=== PATIENT | female | born 1980 | race African-American/Black ===

== ENCOUNTER 2016-11-30 11:00 | Inpatient (IN) | payer OTHER ==
--- NOTE | ~2016-11-30 | PN ---
Unit #: [id number] #: [id number] Patient: ALONZO BHAKTA [id number] [facility] [address] [place] [address] [id number] I MR#: [id number] NAME: ALONZO BHAKTA ROOM: [facility] Age: 36 Sex: F Admission Date: 11/30/2016 : 1980 Attending Physician: Taiwo Henning M.D. Admitting Physician: Michael Rodriguez PROGRESS NOTES DATE 12/03/2016 SUBJECTIVE UPDATE This is a 36-year-old female here with ongoing issues of severe depression with suicidal ideation. Patient reports sleeping better last night with the addition of the trazodone. She also reports overall her mood seems to be improving and the SI is improving as well. Still some residual vague symptoms but no desire or plan today. Patient does report feeling somewhat fatigued this morning with the trazodone but overall says she feels like her mood is improving and her sleep quality is improving. No additional complaints. MENTAL STATUS EXAMINATION General appearance is a moderately groomed female improved eye contact. Speech was clear and coherent, normal prosody. Mood was depressed but improving with a congruent affect. Thought process and content are grossly organized, linear, no overt evidence of psychosis. SI resolving but still present. No active plan or intent or desire. Memory is fair. Alert and oriented times four. Cognitive functioning is at baseline. Associations are normal. Insight and judgement is improving. RECOMMENDATIONS Continue patient's admission for safety and stabilization. Overall, the patient has been showing good progress with her overall care. Depression and SI are improving but not yet resolved. Will continue patient care with likely disposition soon should progress be maintained. Sleep quality also is improving with treatment. Dictated by... Michael Rodriguez/michelle TD: 12/03/2016 17:01 JOB #: [id number] Unit #: [id number] #: [id number] Patient: ALONZO BHAKTA PROGRESS NOTES Page 1 of 1 X Taiwo Henning MD X PROGRESS NOTE
--- NOTE | ~2016-11-30 | PN ---
Unit #: [id number] #: [id number] Patient: ALONZO BHAKTA [id number] [facility] [address] [place] [address] [id number] I MR#: [id number] NAME: ALONZO BHAKTA ROOM: [facility] Age: 36 Sex: F Admission Date: 11/30/2016 : 1980 Attending Physician: Taiwo Henning M.D. Admitting Physician: Michael Rodriguez PROGRESS NOTES DATE 12/02/2016 SUBJECTIVE UPDATE This is a 36-year-old female here with ongoing issues of significant depression. Patient reports mood is still very poor, depressed with vague suicidal ideations. Reports poor night of sleep because of noise on the unit. The patient seems to be tolerating the Zoloft but has not seen any strong benefit as of yet. The patient is still fairly isolative to self but denies any agitation or other symptoms of side effects at this point. MENTAL STATUS EXAMINATION General appearance is a moderately groomed female fairly pleasant and cooperative responsiveness with moderate eye contact. Speech was clear and coherent normal prosody. Mood was depressed with a blunted affect. Thought process and content were grossly organized and linear. No overt evidence of psychosis positive for SI but no clear plan or intent. Patient's memory was grossly intact. Associations were normal. Cognitive functioning was at baseline. Alert and oriented times four. Insight and judgement is poor. RECOMMENDATIONS We will continue patient's admission for safety and stabilization for ongoing issues with depression and suicidal ideation. The patient seems to be tolerating medications in the acute phase but has not seen any strong benefit or change yet in mood. We will need further stabilization for safety purposes. Dictated by... Michael Rodriguez/veronique TD: 12/03/2016 02:05 JOB #: [id number] Unit #: [id number] #: [id number] Patient: ALONZO BHAKTA PROGRESS NOTES Page 1 of 1 X Taiwo Henning MD X PROGRESS NOTE
--- NOTE | ~2016-11-30 | PA ---
Unit #: [id number] #: [id number] Patient: ALONZO BHAKTA [id number] [place] [address] [id number] I MR#: [id number] NAME: ALONZO BHAKTA ROOM: [facility] Age: 36 Sex: F Admission Date: 11/30/2016 : 1980 Date of Assessment: 12/01/2016 Attending Physician: Taiwo Henning M.D. Admitting Physician: Taiwo Henning M.D. PSYCHIATRIC ASSESSMENT LOCATION [facility], [address] [place] [address], room 265, bed 1. INFORMANTS The patient and chart, both seem reliable. HISTORY OF PRESENT ILLNESS This is a 36-year-old female here with significant issues of depression with suicidal ideation. The patient reports stressors including ongoing trust with her . Her is extremely paranoid of her, thinking she is cheating on him, even though she reports not. Apparently, there seems to be several influences in his life that are exacerbating ongoing trust issues that he has had from previous negative relationships, but the patient reports that they have been very stable. They have two children and a good home. There was no physical abuse or anything of that nature, but he has been continuing to harass her in terms of wanting her work schedule printed out, all of her calls monitored, etc. to the point where she is feeling overwhelmed and yesterday started having thoughts about wanting to harm herself. That is why she came to the hospital for help. The patient is still having vague SI, but no plan or desire. She is still extremely depressed, labile in affect, limited sleep, feeling worthlessness, hopelessness and anhedonia, this has all been going on for weeks now in terms of the symptoms with the SI starting in the last couple of days. The patient's children are currently at her mother's while she is here in the hospital, but that has also been a source of stressors and she has been admitted, but overall the patient has been open to care, has never been in the care before for depression, has never been seen by psychiatrist or any account of formal treatment with medications, but she is open to all aspects of it. PAST PSYCHIATRIC CARE None to speak of in terms of inpatient or outpatient care. No history of medications. No previous issues with SI, HI or psychosis. No history of chemical dependency. SOCIAL HISTORY The patient is , gainfully employed with vocational training. with two children and good support to family. Smokes cigarettes. FAMILY HISTORY Noncontributory. MEDICAL HISTORY Unit #: [id number] #: [id number] Patient: ALONZO BHAKTA History of bronchitis. ALLERGIES Nothing reported. MEDICATION HISTORY To be determined for her bronchitis by a pharmacy inquiry. SUBSTANCE ABUSE HISTORY Beyond cigarettes, the patient denies anything of significance. MENTAL STATUS EXAMINATION General appearance; this is a moderately groomed female, fairly pleasant, cooperative throughout with good eye contact. Speech was clear and coherent. Well prosody. Mood was depressed with a labile affect. Thought process and content were grossly organized and linear. No overt evidence of psychosis. Positive for SI, but no clear plan at this time. The patient's memory was grossly intact. Associations were normal. Cognitive function was at baseline. Alert and oriented x4. Insight and judgment are limited. ASSETS AND LIABILITIES Assets include good support through peripheral family and employed with good education and no substance abuse history. Liabilities include no exposure to treatment previously, ongoing marital discord, questionable disposition planning. DIAGNOSTIC IMPRESSION 1. Major depressive disorder, single episode, severe without psychotic features. 2. History of recent bronchitis. PSYCHIATRIC PLAN Continue the patient's admission for safety and stabilization for ongoing issues with depression and suicidal ideation. We will start the patient on Zoloft 50 mg daily by mouth for depression and symptoms. We will encourage the patient to go to groups and activities as well as provided standard p.r.n.'s and ordered routine labs. Possibly, the patient will need marital counseling, referral sources in addition to individual referrals for her own depression treatment. Treatment goal will be resolution of these symptoms in a safe controlled environment with a referral plan for outpatient community resources for both herself and couples counseling if possible. ESTIMATED LENGTH OF STAY Approximately 4 to 5 days depending on the patient's progress and response to treatment. Dictated by... Taiwo Henning M.D. MORENITA/ginger TD: 12/02/2016 03:43 JOB #: [id number] Unit #: [id number] #: [id number] Patient: ALONZO BHAKTA PSYCHIATRIC ASSESSMENT Page 1 of 1 X Taiwo Henning MD PSYCHIATRIC ASSESSMENT
--- NOTE | ~2016-11-30 | DS ---
Unit #: [id number] #: [id number] Patient: ALONZO BHAKTA [id number] [place] [address] [id number] I MR#: [id number] NAME: ALONZO BHAKTA ROOM: [facility] Age: 36 Sex: F Admission Date: 11/30/2016 : 1980 Discharge Date: 12/06/2016 Attending Physician: Taiwo Henning M.D. DISCHARGE SUMMARY REASON FOR ADMISSION Severe depression with suicidal ideation. DIAGNOSTIC STUDIES PERTINENT LABORATORY DATA: The patient had routine blood work which include a CMP that showed a slightly elevated glucose of 137 randomly drawn, otherwise normal. Beta HCG was negative. CBC was within normal parameters with the exception of a white blood cell count slightly low at 3.7, otherwise was normal. Urine tox was positive for cocaine. The rest of the urinalysis was negative with the exception of 2+ blood. HOSPITAL COURSE The patient was admitted for safety and stabilization for issues with severe depression an suicidal ideation. Apparently much of the patient's issues had to deal with her significant other being very paranoid and been distrusting of her thinking she was cheating on him to the point where it was interfering not only with their marriage but with her personal life as he was constantly hounding her wanting to know where she was at all the time. The patient started feeling overwhelmed, started having thoughts of wanting to kill herself, and that is why she came to the hospital for care. The patient was put on Zoloft, and it was titrated up to 100 mg over the course of the hospitalization and did help with her mood. The patient tolerated it well without any adverse side effects, and did show a good positive benefit too. By the time of discharge, the patient was also placed on trazodone. That was increased to 100 mg by the time of discharge to help with sleep. The patient was responding well to both medications with improvement in mood and disposition. At the time of discharge, the patient was felt to have reached maximum benefit from inpatient admission. She was no longer tearful and was denying any SI and was much more goal and future oriented, denying any thoughts of wanting to harm herself or anyone else. She was fairly isolative to self through much of the hospitalization but was focused on outpatient aftercare in getting along with her kids and her family. She acknowledges that the issues with her are an ongoing issue, and she is going to look into additional resources for that when she is more prepared. DISCHARGE DIAGNOSES Major depressive disorder, single episode, severe, without psychotic features. DISCHARGE INSTRUCTIONS Good. The patient to be discharged today home with family. Followup with the psych IOP Program here at the [facility]. Unit #: [id number] #: [id number] Patient: ALONZO BHAKTA DISCHARGE MEDICATIONS 1. Zoloft 100 mg daily by mouth for depression. 2. Trazodone 100 mg at bedtime for sleep as needed. CONDITION AT DISCHARGE Improving. PROGNOSIS Fair given the patient's limited history of mental health problems in the past. DISCHARGE DIET Regular. DISCHARGE ACTIVITY As tolerated with compliance and courage. Dictated by... Taiwo Henning M.D. MORENITA/stevie TD: 12/06/2016 10:10 JOB #: [id number] DISCHARGE SUMMARY Page 1 of 1 X Taiwo Henning MD X DISCHARGE SUMMARY
--- NOTE | ~2016-11-30 | HP ---
Unit #: [id number] #: [id number] Patient: ALONZO BHKATA [id number] [facility] [address] [place] [address] [id number] I MR#: [id number] NAME: ALONZO BHAKTA ROOM: [facility] Age: 36 Sex: F Admission Date: 11/30/2016 : 1980 Attending Physician: Taiwo Henning M.D. Admitting Physician: Taiwo Henning M.D. HISTORY AND PHYSICAL HISTORY OF PRESENT ILLNESS Alonzo is a 36 year old admitted to [address] [place] [address] with depression and verbalizing wanting to hurt herself. PAST MEDICAL HISTORY 1. Asthma. 2. Obesity PAST SURGICAL HISTORY Nothing reported ALLERGIES Penicillin. SOCIAL HISTORY Smokes 1 1/2 pack per day. Denies alcohol. Admits to occasional use of cocaine. FAMILY HISTORY Medically noncontributory. REVIEW OF SYSTEMS CONSTITUTIONAL: No fever or chills. HEENT: Denies any sore throat, ear pain or runny nose. CARDIOVASCULAR: Denies chest pain, irregular heart rhythm or palpitations. CHEST: Denies shortness of breath or cough. No hemoptysis. GASTROINTESTINAL: Denies nausea, vomiting, diarrhea or chronic constipation. ENDOCRINE: Denies history of increased thirst or urination. No recent significant weight loss or gain. GENITOURINARY: Denies dysuria, frequency, or hematuria. SKIN: Denies any rashes. HEMATOLOGIC: Denies history of increased bleeding or bruising. MUSCULOSKELETAL: Denies any hot, swollen joints. No generalized muscle pain. NEUROLOGIC: Denies problems with vision or speech. No frequent, severe headaches. No numbness, tingling or weakness in any extremities. Denies loss of bladder or bowel control. CURRENT MEDICATIONS 1. Zoloft 50 mg q day 2. Milk of Magnesia p.r.n. Unit #: [id number] #: [id number] Patient: ALNOZO BHAKTA 3. Maalox p.r.n. 4. Tylenol p.r.n. 5. control pills 1 q day PHYSICAL EXAMINATION GENERAL: Alert, obese, in no apparent distress. VITAL SIGNS: Blood pressure 110/72, heart rate 86, respirations 16, temperature 98.6. WEIGHT: 180 pounds. HEIGHT: 5'3". SKIN: Warm and dry without rash or lesion. HEENT: Normocephalic. TMs not viewed. Oral and nasal passages clear. Conjunctivae clear. Pupils equal, round and reactive to light and accommodation. Extraocular movements intact. NECK: Supple without lymphadenopathy or thyromegaly. HEART: Regular rate and rhythm without murmur. LUNGS: Clear. ABDOMEN: Soft, nontender. : Not done. EXTREMITIES: No evidence of cyanosis, clubbing or edema. Moves all extremities without focal deficit. NEUROLOGICAL: Grossly within normal limits. Cranial Nerves: II: Visual gr are intact. III, IV AND : Extraocular movements are intact. Pupils are equal, round and reactive to light. V: Facial sensation is grossly normal. VII: Facial movements and expression are normal. VIII: Auditory acuity grossly intact. IX, X: Uvula is midline. Phonation is normal. XI: Patient shrugs shoulders and turns head normally. XII: Tongue protrudes in the midline. Sensory and Motor Function: Sensory and motor sensation is grossly normal. Motor: moves all extremities well. Coordination: Gait is normal. Deep Tendon Reflexes: Intact. IMPRESSION Psychiatric admission RECOMMENDATIONS PSYCHIATRIC: Per psychiatrist. MEDICAL: I see no contraindications to participating in facility's activities. MEDICAL PROGNOSIS Good. MEDICAL CONDITION Stable. Dictated by... Tonja Bello PHuyenAHuyen-Alexys. for Michale Omer/veronique Unit #: [id number] #: [id number] Patient: ALONZO BHAKTA TD: 12/02/2016 00:41 JOB #: [id number] HISTORY AND PHYSICAL Page 1 of 1 X Tonja Bello X HISTORY AND PHYSICAL
--- NOTE | ~2016-11-30 | CO ---
Unit #: [id number] #: [id number] Patient: ALONZO BHAKTA [id number] [facility] [address] [place] [address] [id number] I MR#: [id number] NAME: ALONZO BHAKTA ROOM: [facility] Age: 36 Sex: F Admission Date: 11/30/2016 : 1980 Attending Physician: Taiwo Henning M.D. Consultation Date: 12/01/2016 CONSULTATION REPORT DARRIUS Call is a 36 year old with a history of asthma. She has not used an inhaler in "years." She denies any cough, shortness of breath or wheezing. Plan will be for her to followup with her PCP should she so desire. Please see H and P dated 12/01/16. Dictated by... Tonja Bello P.A.-C. for Michael Omer/michelle TD: 12/02/2016 18:56 JOB #: [id number] CONSULTATION REPORT Page 1 of 1 X Tonja Bello CONSULTATION REPORT
--- NOTE | ~2016-11-30 | PN ---
Unit #: [id number] #: [id number] Patient: ALONZO BHAKTA [id number] [facility] [address] [place] [address] [id number] I MR#: [id number] NAME: ALONZO BHAKTA ROOM: [facility] Age: 36 Sex: F Admission Date: 11/30/2016 : 1980 Attending Physician: Taiwo Henning M.D. Admitting Physician: Taiwo Henning M.D. [facility] PROGRESS NOTES DATE 12/05/2016 SUBJECTIVE UPDATE This is a 36-year-old female here with ongoing issues with significant depression and related complications with suicidal ideation. Patient reports doing better today after the increase in medications yesterday for both mood and sleep. She is still having some apprehension and depression with vague SI but markedly improved compared to yesterday. The patient is pleasant, cooperative per staff but still isolative to self. Patient continues to feel stressed by . Apparently, he is now here in the hospital after going on a substance binge. She is worried about how this is going to complicate his paranoia and his actions towards her which is agitating her mood. Overall, though, patient is showing progress today. MENTAL STATUS EXAMINATION General description is a moderately groomed female fairly pleasant and cooperative, responsive with good eye contact. Speech was clear and coherent, normal prosody. Mood was "little better," less depressed with a less labile affect. Thought process and content are grossly organized and linear. No overt evidence of psychosis. Positive for SI but improving. No plan today. No HI, no psychosis. Patient's memory is grossly intact. Associations are normal. Cognitive functioning was at baseline. Alert and oriented times four. Insight and judgement is improving. RECOMMENDATIONS Will continue patient's admission for safety and stabilization for ongoing issues with depression and SI. Those seem to be improving. Unfortunately, life stressors continuing to hinder her full recovery. Most likely disposition soon if progress is able to be maintained. Dictated by... Taiwo Henning M.D. MORENITA/michelle Unit #: [id number] #: [id number] Patient: ALONZO BHAKTA TD: 12/05/2016 21:50 JOB #: [id number] [facility] PROGRESS NOTES Page 1 of 1 X Taiwo Henning MD PROGRESS NOTE
--- NOTE | ~2016-11-30 | PN ---
Unit #: [id number] #: [id number] Patient: ALONZO BHAKTA [id number] [facility] [address] [place] [address] [id number] I MR#: [id number] NAME: ALONZO BHAKTA ROOM: [facility] Age: 36 Sex: F Admission Date: 11/30/2016 : 1980 Attending Physician: Taiwo Henning M.D. Admitting Physician: Michael Rodriguez PROGRESS NOTES DATE 12/04/2016. DISCUSSION This is a 36-year-old female with ongoing issues of significant depression. The patient continues to report depression present, somewhat worse today with intrusive thoughts of dying again. The patient apparently slept poorly last night despite trazodone. The patient seems somewhat more dysphoric and sullen today. He is still isolative to self. Limited interaction on the unit. SI seemed more prevalent today. MENTAL STATUS EXAMINATION General appearance is limited. She is a 36-year-old female with decreased eye contact today. More withdrawn. Speech was clear and coherent, but more brief. Mood was depressed and worsened with restricted affect. Thought process and content are grossly organized and linear. No overt evident psychosis. Positive for SI with increased intensity today, with obtrusive thoughts of dying. Memory was generally intact. Associations were normal. Cognitive functioning was at baseline. The patient was alert and oriented times four. Insight and judgment are limited. RECOMMENDATION 1. Will continue the patient's admission for ongoing issues with depression and severe fluctuations in severe depression. Increased Zoloft to 100 mg daily for mood and increased trazodone to 100 mg for sleep. 2. Monitor and address needs accordingly. 3. Further follow-up care to be evaluated in the morning. Dictated by... Michael Rodriguez/janes TD: 12/04/2016 14:33 JOB #: [id number] Unit #: [id number] #: [id number] Patient: ALONZO BHAKTA PROGRESS NOTES Page 1 of 1 X Taiwo Henning MD X PROGRESS NOTE
[2016-12-01 12:28] LABS: BASOPHIL% 1.3 % (0-2.5); EOSINOPHIL# 0.2 X10e3 (0-0.7); EOSINOPHIL% 5.5 % (0.0-7.0); HEMATOCRIT 41.4 % (35.0-45.0); HEMOGLOBIN 13.7 gm/dL (12.0-16.0); LYMPHOCYTE# 1.6 X10e3 (1.0-3.5); LYMPHOCYTE% 41.9 % (17.0-45.0); MEAN CELL VOLUME 89.7 FL (83-96); MEAN CORPUSCULAR HEMOGLOBIN 29.8 PG (28-34); MEAN CORPUSCULAR HGB CONC 33.2 g/dL (30-36); MEAN PLATELET VOLUME 10.2 FL (6.5-11.5); MONOCYTE# 0.2 X10e3 (0-1.0); MONOCYTE% 6.3 % (3.0-12.0); NEUTROPHIL# 1.7 X10e3 (1.5-7.1); PLATELET COUNT 180 X10e3 (140-420); RED BLOOD COUNT 4.61 X10e (3.90-5.30); RED CELL DISTRIBUTION WIDTH 13.4 % (11.0-15.5); WHITE BLOOD COUNT 3.7 X10e3 (4.0-10.5)
[2016-12-01 12:32] LABS: DIFF IND NO
[2016-12-01 13:15] LABS: ALBUMIN SERUM 3.9 g/dL (3.5-5.0); BILIRUBIN,TOTAL 0.6 mg/dL (0.2-2.0); CALCIUM SERUM 9.1 mg/dL (8.4-10.2); CREATININE SERUM 1.2 mg/dL (0.6-1.4); GLOM FILT RATE Estimated 67.8 mL/min (>60); POTASSIUM 3.6 mmol/L (3.5-5.1); PROTEIN TOTAL SERUM 6.4 g/dL (6.0-8.3)
[2016-12-02 10:09] LABS: URINE BILIRUBIN NEG (NEG); URINE BLOOD 2+ (NEG); URINE COLOR YELLOW; URINE GLUCOSE NORM (NORM); URINE KETONE NEG (NEG); URINE LEUKOCYTE ESTERASE NEG (NEG); URINE NITRATE NEG (NEG); URINE PROTEIN NEG (NEG); URINE SPECIFIC GRAVITY 1.025 (1.003-1.035); URINE UROBILINOGEN NORM (NORM)
[2016-12-02 10:25] LABS: URINE APPEARANCE TURBID
[2016-12-02 10:44] LABS: URINE AMORPHOUS SEDIMENT AMORP URATES; URINE BACTERIA AUWI N (NEGATIVE); URINE SQUAMOUS EPITHELIAL CELL FEW /[HPF]; UWBCS1 AUWI 0-2 (0-5)
[2016-12-02 11:35] LABS: AMPHETAMINE NEG (NEG); BARBITURATES NEG (NEG); BENZODIAZEPINES NEG (NEG); COCAINE POS (NEG); MARIJUANA NEG (NEG); OPIATES NEG (NEG); TRICYCLIC ANTIDEPRESSANTS NEG (NEG); U METHADONE NEG (NEG)
== END 2016-12-06 11:15 | disposition home or self-care (01) | DRG 885 ==
LOC: POF 14:00 → P2L 14:00
PROVIDERS: Psychiatry & Neurology Psychiatry
DX: F32.2 Major depressive disorder, single episode, severe without psychotic features (principal); R45.851 Suicidal ideations; J45.909 Unspecified asthma, uncomplicated; F17.210 Nicotine dependence, cigarettes, uncomplicated; Z88.0 Allergy status to penicillin
CPT/HCPCS: 80053; 80307; 81003; 84703; 85025